=== PATIENT | female | born 2000 | race Caucasian/White ===

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

== ENCOUNTER → 2022-03-09 10:33 | Outpatient (BNVA) | payer BC, MEDICAID, SELFPAY | PROVIDERS: PCP Physician Assistant Medical; Visit Provider Emergency Medicine | DX: R69 Illness, unspecified (principal); Z20.822 Contact with and (suspected) exposure to COVID-19; R68.89 Other general symptoms and signs | CPT/HCPCS: 87635 ==

== ENCOUNTER → 2022-03-11 22:51 | Outpatient (BNVA) | payer BC, MEDICAID, SELFPAY | PROVIDERS: PCP Physician Assistant Medical; Visit Provider Emergency Medicine | DX: R69 Illness, unspecified (principal); Z20.822 Contact with and (suspected) exposure to COVID-19; R68.89 Other general symptoms and signs | CPT/HCPCS: 87801 ==

== ENCOUNTER → 2024-02-03 10:15 | Outpatient (BNVA) | payer SELFPAY | PROVIDERS: PCP Nurse Practitioner Family; Visit Provider Nurse Practitioner Family | DX: J02.9 Acute pharyngitis, unspecified (principal); J06.9 Acute upper respiratory infection, unspecified | CPT/HCPCS: 87880 ==

== ENCOUNTER → 2025-04-27 11:45 | Outpatient (BNVA) | payer MEDICAID, SELFPAY | PROVIDERS: PCP Nurse Practitioner Family; Visit Provider Nurse Practitioner Family | DX: Z02.1 Encounter for pre-employment examination (principal) | CPT/HCPCS: 80053; 80061; 84443; 85025 ==

== ENCOUNTER → 2025-07-18 14:59 | Outpatient (BNVA) | payer MEDICAID, SELFPAY | PROVIDERS: PCP Nurse Practitioner Family; Visit Provider Nurse Practitioner Family | DX: J02.9 Acute pharyngitis, unspecified (principal) | CPT/HCPCS: 87071; 87880 ==